=== PATIENT | male | born 1995 | race Caucasian/White ===

== ENCOUNTER → 2017-08-19 | Outpatient (CLI) | payer OTHER | LOC: BMCIMAGING 14:36 | PROVIDERS: ATTEND Emergency Medicine | DX: R07.81 Pleurodynia (principal) ==

== ENCOUNTER 2018-06-16 05:08 | Emergency (ER) | payer OTHER ==
[2018-06-16 05:16] VITALS: BP 137/72
--- NOTE | 2018-06-16 05:23 | EDPHY ---
H & P Stated Complaint: ST, RIB PAIN, BODY ACHES, HR USUALLY 35-40 Time Seen by Provider: 06/16/18 05:23 HPI/ROS: HPI CHIEF COMPLAINT: Sore throat, cough. HISTORY OF PRESENT ILLNESS: This is a very pleasant 23-year-old male, otherwise healthy without any significant medical history presents emergency room with 48 hr of sore throat, low-grade temperature, a dry cough, and fatigue. Denies any chest pain or shortness of breath, denies productive cough , denies vomiting or diarrhea. Denies abdominal pain. Denies headache or neck pain. No neck stiffness. Main complaint sore throat. Past Medical History: Denies significant medical history Past Surgical History: Denies significant surgical history Social History: Occasional alcohol use. Denies daily use of drugs tobacco. Family History: Noncontributory ROS REVIEW OF SYSTEMS: 10 Systems were reviewed and negative with the exception of the elements mentioned in the history of present illness. Exam Constitutional triage nursing summary reviewed, vital signs reviewed, awake/ alert. Eyes normal conjunctivae and sclera, EOMI, PERRLA. HENT posterior pharynx erythematous, no exudate, no significant swelling, uvula midline, TMs are clear bilaterally moist mucus membranes, no epistaxis, neck supple/ no meningismus, no raccoon eyes. Respiratory dry cough on exam, clear to auscultation bilaterally, normal breath sounds, no respiratory distress, no wheezing. Cardiovascular rate normal, regular rhythm, no murmur, no edema, distal pulses normal. Gastrointestinal soft, non-tender, no rebound, no guarding, normal bowel sounds, no distension, no pulsatile mass. Genitourinary no CVA tenderness. Musculoskeletal no midline vertebral tenderness, full range of motion, no calf swelling, no tenderness of extremities, no meningismus, good pulses, neurovascularly intact. Skin pink, warm, & dry, no rash, skin atraumatic. Neurologic neck is supple, no meningeal signs awake, alert and oriented x 3, AAOx3, moves all 4 extremities equally, motor intact, sensory intact, CN II-XII intact, normal cerebellar, normal vision, normal speech. Psychiatric normal mood/affect. Heme/Lymph/Immune no lymphadenopathy. Differential Diagnosis: Includes but is not limited to in a particular order viral syndrome, upper respiratory tract infection, viral pharyngitis, strep pharyngitis, viral pneumonia, bacterial pneumonia. Medical Decision Making: Plan for this patient rapid strep. As well as two view chest x-ray to rule pneumonia. This patient appears well nontoxic no acute distress stable vital signs. No hypoxia. No high fever. Heart rate is typically in the 40s per the patient. Abdomen is soft. No rash. Rapid strep is positive. Patient be placed on azithromycin for strep infection. Return precautions discussed with the patient. Drink lots of fluids stay well- hydrated. Anti-inflammatory pain medicine. Return if worse. Source: Patient - Personal History Current Tetanus/Diphtheria Vaccine: Unsure - Medical/Surgical History Hx Asthma: No Hx Chronic Respiratory Disease: No Hx Diabetes: No Hx Cardiac Disease: No Hx Renal Disease: No Hx Cirrhosis: No Hx Alcoholism: No Hx HIV/AIDS: No Hx Splenectomy or Spleen Trauma: No Other PMH: ACL SURG, THUMB SURG - Social History Smoking Status: Never smoked Constitutional: Initial Vital Signs Temperature (C) 37.6 C 06/16/18 05:13 Heart Rate 83 06/16/18 05:13 Respiratory Rate 20 06/16/18 05:13 Blood Pressure 137/72 H 06/16/18 05:13 O2 Sat (%) 93 06/16/18 05:13 O2 Delivery Mode Room Air Allergies/Adverse Reactions: No Known Allergies Allergy (Unverified 06/16/18 05:13) Home Medications: Medication Instructions Recorded Azithromycin [Zithromax] 250 mg PO DAILY #6 tab 06/16/18 Ibuprofen [Motrin (*)] 800 mg PO Q6-8PRN #10 tab 06/16/18 Medical Decision Making - Data Points Laboratory Results: 06/16/18 05:25 Group A Strep Screen POSITIVE H (NEGATIVE) Departure - Departure Disposition: Home, Routine, Self-Care Clinical Impression: Strep pharyngitis Pharyngitis Qualifiers: Pharyngitis/tonsillitis etiology: unspecified etiology Qualified Code(s): J02.9 - Acute pharyngitis, unspecified Condition: Good Instructions: Pharyngitis (ED), Strep Throat (ED) Additional Instructions: 1. Make sure to drink lots of fluids stay well-hydrated 2. I would alternate Tylenol and Motrin every 6 hr for fever and pain control. 3. Antibiotic as prescribed. 4. Return emergency room if you have worsening symptoms includes high fever, vomiting, not feeling well. Referrals: [facility],Alayna B, MD [Primary Care Provider] - As per Instructions Prescriptions: Azithromycin [Zithromax] 250 mg PO DAILY #6 tab Ibuprofen [Motrin (*)] 800 mg PO Q6-8PRN #10 tab
[2018-06-16] MEDS ORDERED: AZITHROMYCIN 250 MG TAB PO ONE (06:06)
== END 2018-06-16 06:05 | disposition home or self-care (01) ==
DX: J02.9 Acute pharyngitis, unspecified (principal)